=== PATIENT | female | born 1940 | race Caucasian/White ===

== ENCOUNTER 2017-02-09 09:02 | Day surgery (SDC) | payer MEDICARE, BC ==
[2017-02-09] MEDS ORDERED: Sodium Chloride 0.9% 1,000 ML IV SCH (09:45)
[2017-02-09] MEDS ORDERED: Midazolam 1 MG/ML 2 ML SDV ONE (10:36)
[2017-02-09] MEDS ORDERED: fentaNYL 100 MCG/2 ML SDV ONE (10:36)
[2017-02-09] MEDS ORDERED: Propofol 200 MG/20 ML SDV ONE (10:36)
[2017-02-09] MEDS ORDERED: Glycopyrrolate 0.2 MG/ML 2 ML SDV ONE (10:47)
[2017-02-09 12:06] VITALS: BP 146/95
--- NOTE | 2017-02-09 18:48 | OR ---
DATE OF PROCEDURE: 02/09/2017 PROCEDURE: Colonoscopy. PREOPERATIVE DIAGNOSIS: History of colon polyps. POSTOPERATIVE DIAGNOSES: History of colon polyps. COMPLICATIONS: None. BOOK AUTHOR: None. INDICATIONS: Risks, benefits, alternatives, and limitations, including, but not limited to infection, bleeding, and perforation were explained the patient wished to proceed. PROCEDURE IN DETAIL: The patient was placed in left lateral decubitus position. Digital rectal exam was performed without abnormality. The scope was introduced and advanced atraumatically to the ileocecal valve. The scope was brought back to the ascending, transverse, descending colon, and retroflexed. No evidence of old or new blood. No polyps. No masses. No diverticulosis. Only minor abnormalities small hemorrhoidal tag. The patient tolerated the procedure well. Bro Singleton MD /[id number]
== END 2017-02-09 12:20 | disposition home or self-care (01) ==
LOC: JP.SDS 09:02
PROVIDERS: ATTEND Surgery
DX: Z12.11 Encounter for screening for malignant neoplasm of colon (principal); K64.4 Residual hemorrhoidal skin tags; K21.9 Gastro-esophageal reflux disease without esophagitis; E11.9 Type 2 diabetes mellitus without complications; E78.5 Hyperlipidemia, unspecified; Z91.040 Latex allergy status
CPT/HCPCS: G0105; J2250; J2704; J3010; J7040; J3490

== ENCOUNTER 2017-02-18 20:07 | Emergency (ER) | payer MEDICARE, BC ==
[2017-02-18 20:34] VITALS: BP 96/59
--- NOTE | 2017-02-18 20:41 | EDM.PDOC ---
ED HPI GENERAL MEDICAL PROBLEM - General Chief Complaint: Bite:Animal, Insect Stated Complaint: EMBEDDED TICK Time Seen by Provider: 02/18/17 20:44 Source of Information: Reports: Patient History Limitations: Reports: No Limitations - History of Present Illness INITIAL COMMENTS - FREE TEXT/NARRATIVE: pt has a embedded tick in the back of the rt knee. Onset: Today Duration: Hour(s): Location: Reports: Lower Extremity, Right Severity: Moderate Associated Symptoms: Reports: No Other Symptoms - Related Data Allergies Allergy/AdvReac Type Severity Reaction Status Date / Time Latex, Natural Rubber Allergy Rash Verified 02/09/17 09:28 aspirin AdvReac Bleeding Verified 02/09/17 09:28 Home Meds: Home Meds Calcium Carbonate/Vitamin D3 [Caltrate 600 + D] 1 tab.chew PO BID 08/07/13 [ History] Fish Oil/DHA/EPA [Fish Oil 1,200 MG] 2 each PO DAILY 08/07/13 [History] Gluc 2KCl/Chondr/Rachel Hy/Hy Ac [Glucosamine & Chondroitin Cap] 1 each PO BID 03/14 [History] Melatonin/Pyridoxine HCl (B6) [Melatonin 5 mg Tablet] 5 mg PO BEDTIME 08/07/13 [ History] Multivits w-Min/Ferrous Gluc [Centrum Multivit-Mineral] 1 each PO DAILY [History] Omeprazole 40 mg PO DAILY 08/07/13 [History] metFORMIN [metFORMIN XR] 500 mg PO DAILY 08/07/13 [History] Sertraline [Zoloft] 150 mg PO DAILY 12/05/13 [History] atorvaSTATin [Lipitor] 40 mg PO BEDTIME 12/05/13 [History] Aspirin [Adult Low Dose Aspirin EC] 81 mg PO DAILY 12/06/13 [History] Cholecalciferol (Vitamin D3) [Vitamin D] 1 tab PO DAILY 04/14/15 [History] Ferrous Sulfate [Ferrous Sulfate] 1 tab PO BID 04/14/15 [History] Ascorbic Acid [Vitamin C] 250 mg PO BID 02/07/17 [History] Clobetasol [Clobetasol 0.05%] 1 dose TOP ASDIRECTED 02/07/17 [History] Cyanocobalamin (Vitamin B-12) [Vitamin B-12] 2 tab PO DAILY 02/07/17 [History] Gabapentin [Neurontin] 300 mg PO TID 02/07/17 [History] Lutein 20 mg PO DAILY 02/07/17 [History] Pramipexole Di-HCl [Mirapex] 0.75 mg PO BEDTIME 02/07/17 [History] Past Medical History HEENT History: Reports: Cataract, Impaired Vision, Macular Degeneration Cardiovascular History: Reports: Heart Murmur, High Cholesterol Gastrointestinal History: Reports: Colon Polyp, GERD, Other (See Below) Other Gastrointestinal History: Esophageal bleed Genitourinary History: Reports: None 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, Fibroids, Musculoskeletal History: Reports: Fracture, Osteoarthritis Psychiatric History: Reports: Depression Endocrine/Metabolic History: Reports: Diabetes, Type II, Obesity/BMI 30+, Osteoporosis Hematologic History: Reports: Blood Transfusion(s), Iron Deficiency - Infectious Disease History Infectious Disease History: Reports: Chicken Pox, Measles, Pertussis (Whooping Cough) - Past Surgical History Female Surgical History: Reports: D&C, Hysterectomy, Salpingo-Oophorectomy, Tubal Ligation Musculoskeletal Surgical History: Reports: None Social & Family History - Tobacco Use Smoking Status *Q: Never Smoker Years of Tobacco use: 15 Packs/Tins Daily: 0.2 Used Tobacco, but Quit: Yes Month Tobacco Last Used: 1984 Second Hand Smoke Exposure: No - Caffeine Use Caffeine Use: Reports: Coffee, Tea - Alcohol Use Days Per Week of Alcohol Use: 0 Number of Drinks Per Day: 1 Total Drinks Per Week: 0 - Recreational Drug Use Recreational Drug Use: No ED ROS GENERAL - Review of Systems Review Of Systems: See Below Constitutional: Reports: No Symptoms HEENT: Reports: No Symptoms Respiratory: Reports: No Symptoms Cardiovascular: Reports: No Symptoms Endocrine: Reports: No Symptoms GI/Abdominal: Reports: No Symptoms : Reports: No Symptoms ED EXAM, ANIMAL BITE - Physical Exam Exam: See Below Text/Narrative:: pt arrived with a deer tick which was very embedded behind her rt knee. Exam Limited By: No Limitations General Appearance: Alert, No Apparent Distress Extremities: Other (Pt had an embedded deer tick behind the rt knee. This was removed with a sliver forceps without difficulty. ) Course - Vital Signs Last Recorded V/S: Last Vital Signs Temp 36.7 C 02/18/17 20:32 Pulse 82 02/18/17 20:32 Resp 14 02/18/17 20:32 BP 96/59 L 02/18/17 20:32 Pulse Ox 96 02/18/17 20:32 Departure - Departure Time of Disposition: 20:40 Disposition: Home, Self-Care 01 Condition: fair Clinical Impression: Dermacentor andersoni tick bite - Discharge Information Referrals: Shonna Coleman MD [Primary Care Provider] - Forms: ED Department Discharge Care Plan Goals: moist warm packs, doxycyline 100mg bid for 5 days.
== END 2017-02-18 20:53 | disposition home or self-care (01) ==
LOC: JP.ED 20:07
DX: S80.261A Insect bite (nonvenomous), right knee, initial encounter (principal); E78.00 Pure hypercholesterolemia, unspecified; K21.9 Gastro-esophageal reflux disease without esophagitis; M19.90 Unspecified osteoarthritis, unspecified site; F32.9 Major depressive disorder, single episode, unspecified; E11.9 Type 2 diabetes mellitus without complications; H54.7 Unspecified visual loss; D64.9 Anemia, unspecified; E66.9 Obesity, unspecified; Z68.37 Body mass index [BMI] 37.0-37.9, adult; Z90.710 Acquired absence of both cervix and uterus; Z91.040 Latex allergy status; Z88.8 Allergy status to other drugs, medicaments and biological substances; Z79.899 Other long term (current) drug therapy; Z79.82 Long term (current) use of aspirin; Z79.84 Long term (current) use of oral hypoglycemic drugs; Z98.49 Cataract extraction status, unspecified eye; Z98.51 Tubal ligation status; Z98.890 Other specified postprocedural states; W57.XXXA Bitten or stung by nonvenomous insect and other nonvenomous arthropods, initial encounter
CPT/HCPCS: 99282; 99283

== ENCOUNTER 2017-04-03 18:04 | Emergency (ER) | payer MEDICARE, BC ==
[2017-04-03] MEDS ORDERED: HYDROmorphone 0.5 MG/0.5 ML Syringe IVPUSH ONE (18:14)
[2017-04-03] MEDS ORDERED: HYDROmorphone 0.5 MG/0.5 ML Syringe ONE (18:15)
--- NOTE | 2017-04-03 18:18 | EDM.PDOC ---
[id number] Complaint: TRIPPED AND FELL Time Seen by Provider: 04/03/17 18:13 Source of Information: Reports: Patient, EMS, Family History Limitations: Reports: No Limitations - History of Present Illness INITIAL COMMENTS - FREE TEXT/NARRATIVE: 76-year-old female tripped over the tongue of the trailer and fell forward striking her left knee and right upper arm and shoulder on the ground. She has significant pain of the right upper arm and left knee. She received pain medicine in route but is still very uncomfortable. Denies any head or neck injury, denies hip pain, shortness of breath or abdominal discomfort. She is not on anticoagulants. She already has advanced arthritic problems. Onset: Sudden (Within the last hour) Location: Reports: Upper Extremity, Right, Lower Extremity, Left Quality: Reports: Sharp, Stabbing Severity: Moderate Worsens with: Reports: Movement Context: Reports: Trauma Associated Symptoms: Denies: Chest Pain, Cough, Headaches, Nausea/Vomiting, Shortness of Breath Right Shoulder Pain Score (Numeric/FACES): 10 Left Knee Pain Score (Numeric/FACES): 10 - Related Data Allergies Allergy/AdvReac Type Severity Reaction Status Date / Time Latex, Natural Rubber Allergy Rash Verified 02/09/17 09:28 aspirin AdvReac Bleeding Verified 02/09/17 09:28 Home Meds: Home Meds Calcium Carbonate/Vitamin D3 [Caltrate 600 + D] 1 tab.chew PO BID 08/07/13 [ History] Fish Oil/DHA/EPA [Fish Oil 1,200 MG] 2 each PO DAILY 08/07/13 [History] Gluc 2KCl/Chondr/Rachel Hy/Hy Ac [Glucosamine & Chondroitin Cap] 1 each PO BID 03/14 [History] Melatonin/Pyridoxine HCl (B6) [Melatonin 5 mg Tablet] 5 mg PO BEDTIME 08/07/13 [ History] Multivits w-Min/Ferrous Gluc [Centrum Multivit-Mineral] 1 each PO DAILY [History] Omeprazole 40 mg PO DAILY 08/07/13 [History] metFORMIN [metFORMIN XR] 500 mg PO DAILY 08/07/13 [History] Sertraline [Zoloft] 150 mg PO DAILY 12/05/13 [History] atorvaSTATin [Lipitor] 40 mg PO BEDTIME 12/05/13 [History] Aspirin [Adult Low Dose Aspirin EC] 81 mg PO DAILY 12/06/13 [History] Cholecalciferol (Vitamin D3) [Vitamin D] 1 tab PO DAILY 04/14/15 [History] Ferrous Sulfate [Ferrous Sulfate] 1 tab PO BID 04/14/15 [History] Ascorbic Acid [Vitamin C] 250 mg PO BID 02/07/17 [History] Clobetasol [Clobetasol 0.05%] 1 dose TOP ASDIRECTED 02/07/17 [History] Cyanocobalamin (Vitamin B-12) [Vitamin B-12] 2 tab PO DAILY 02/07/17 [History] Gabapentin [Neurontin] 300 mg PO TID 02/07/17 [History] Lutein 20 mg PO DAILY 02/07/17 [History] Pramipexole Di-HCl [Mirapex] 0.75 mg PO BEDTIME 02/07/17 [History] Past Medical History HEENT History: Reports: Cataract, Impaired Vision, Macular Degeneration Cardiovascular History: Reports: Heart Murmur, High Cholesterol Gastrointestinal History: Reports: Colon Polyp, GERD, Other (See Below) Other Gastrointestinal History: Esophageal bleed Genitourinary History: Reports: None 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, Fibroids, Musculoskeletal History: Reports: Fracture, Osteoarthritis Psychiatric History: Reports: Depression Endocrine/Metabolic History: Reports: Diabetes, Type II, Obesity/BMI 30+, Osteoporosis Hematologic History: Reports: Blood Transfusion(s), Iron Deficiency - Infectious Disease History Infectious Disease History: Reports: Chicken Pox, Measles, Pertussis (Whooping Cough) - Past Surgical History Female Surgical History: Reports: D&C, Hysterectomy, Salpingo-Oophorectomy, Tubal Ligation Musculoskeletal Surgical History: Reports: None Social & Family History - Tobacco Use Smoking Status *Q: Never Smoker Years of Tobacco use: 15 Packs/Tins Daily: 0.2 Used Tobacco, but Quit: Yes Month Tobacco Last Used: 1984 Second Hand Smoke Exposure: No - Caffeine Use Caffeine Use: Reports: Coffee - Alcohol Use Days Per Week of Alcohol Use: 0 Number of Drinks Per Day: 1 Total Drinks Per Week: 0 - Recreational Drug Use Recreational Drug Use: No Review of Systems - Review of Systems Review Of Systems: See Below Constitutional: Denies: Fever Respiratory: Denies: Shortness of Breath Cardiovascular: Denies: Chest Pain GI/Abdominal: Denies: Abdominal Pain Musculoskeletal: Reports: Shoulder Pain, Arm Pain, Leg Pain (Left side) Neurological: Reports: No Symptoms ED EXAM, GENERAL - Physical Exam Exam: See Below Exam Limited By: No Limitations General Appearance: Alert, Moderate Distress (Very uncomfortable) Eye Exam: Bilateral Eye: EOMI Neck: Non-Tender Respiratory/Chest: No Respiratory Distress, Lungs Clear Extremities: Other (There is swelling around the proximal right humerus with intense pain with any range of motion. She is also holding the left knee in 30 flexion and any extension or flexion causes significant discomfort. Even light palpation causes intense pain so no further exam was done. Distal CMS of the leg and arm are intact.) Course - Vital Signs Last Recorded V/S: Last Vital Signs Temp 98.0 F 04/03/17 20:05 Pulse 60 04/03/17 20:05 Resp 16 04/03/17 20:05 BP 140/72 04/03/17 20:05 Pulse Ox 97 04/03/17 20:05 - Orders/Labs/Meds Orders: Active Orders 24 hr Category Date Time Status Humerus Rt [CR] Stat Exams 04/03/17 18:14 Taken Knee 1V or 2V Lt [CR] Stat Exams 04/03/17 18:14 Taken Meds: Medications Discontinued Medications Generic Name Dose Route Start Last Admin Trade Name Ji PRN Reason Stop Dose Admin Hydromorphone HCl 0.5 mg 04/03/17 18:14 04/03/17 18:18 Dilaudid IVPUSH 04/03/17 18:15 0.5 mg ONETIME ONE Administration Hydromorphone HCl Confirm 04/03/17 18:15 04/03/17 18:18 Dilaudid Administered 04/03/17 18:16 Not Given Dose 0.5 mg .ROUTE .STK-MED ONE - Re-Assessments/Exams Free Text/Narrative Re-Assessment/Exam: 04/03/17 18:19 An x-ray of the right humerus and left knee were obtained. She was given an additional 0.5 mg of Dilaudid IV. 04/03/17 19:56 X-rays confirmed a comminuted proximal humerus and distal left femur fracture. She was accepted for care at [facility] for orthopedic evaluation and definitive care. Departure - Departure Time of Disposition: :17 Disposition: DC/Tfer to Other 70 Condition: Fair Clinical Impression: Humerus surgical neck fracture Qualifiers: Encounter type: initial encounter Fracture type: closed Fracture morphology: 4- part Laterality: right Qualified Code(s): S42.241A - 4-part fracture of surgical neck of right humerus, initial encounter for closed fracture Femur fracture, left Qualifiers: Encounter type: initial encounter Femur location: supracondylar with intracondylar extension Fracture type: closed - Discharge Information Referrals: PCP,None [Primary Care Provider] - Forms: ED Department Discharge Care Plan Goals: Patient was accepted at [facility] for orthopedic evaluation and care. She' ll be transferred via EMS. - My Orders Last 24 Hours: My Active Orders 04/03/17 18:14 Humerus Rt [CR] Stat Knee 1V or 2V Lt [CR] Stat - Assessment/Plan Last 24 Hours: My Active Orders 04/03/17 18:14 Humerus Rt [CR] Stat Knee 1V or 2V Lt [CR] Stat
[2017-04-03 20:18] VITALS: BP 140/72
--- NOTE | 2017-04-05 09:09 | CR ---
Fracture of the right shoulder surgical neck and right humeral head. Multiple fracture fragments of both the humeral head laterally.
--- NOTE | 2017-04-05 09:11 | CR ---
There are 2 lateral views of the left knee. Comminuted distal femoral fracture with impaction. There is displacement of the condyles and the lateral view. No AP view. Proximal tibia is grossly intact.
== END 2017-04-03 20:18 | disposition other institution (70) ==
LOC: JP.ED 18:04
DX: S42.241A 4-part fracture of surgical neck of right humerus, initial encounter for closed fracture (principal); S72.462A Displaced supracondylar fracture with intracondylar extension of lower end of left femur, initial encounter for closed fracture; H54.7 Unspecified visual loss; E78.00 Pure hypercholesterolemia, unspecified; M19.90 Unspecified osteoarthritis, unspecified site; F32.9 Major depressive disorder, single episode, unspecified; E11.9 Type 2 diabetes mellitus without complications; E66.9 Obesity, unspecified; Z90.710 Acquired absence of both cervix and uterus; Z91.040 Latex allergy status; Z79.82 Long term (current) use of aspirin; Z79.899 Other long term (current) drug therapy; Z79.84 Long term (current) use of oral hypoglycemic drugs; W01.0XXA Fall on same level from slipping, tripping and stumbling without subsequent striking against object, initial encounter
CPT/HCPCS: 73060; 73560; 96374; 99284; J1170

== ENCOUNTER 2018-05-10 06:21 | Day surgery (SDC) | payer MEDICARE, BC ==
[2018-05-10] MEDS ORDERED: Sodium Chloride 0.9% 1,000 ML IV SCH (07:00)
[2018-05-10] MEDS ORDERED: fentaNYL 100 MCG/2 ML SDV ONE (07:35)
[2018-05-10] MEDS ORDERED: Propofol 200 MG/20 ML SDV ONE (07:35)
[2018-05-10] MEDS ORDERED: Naloxone 0.4 MG/ML SDV ONE (08:10)
[2018-05-10 09:23] VITALS: BP 100/43
--- NOTE | 2018-05-10 13:34 | OR ---
DATE OF PROCEDURE: 05/10/2018 PROCEDURE PERFORMED: EGD. FINDINGS: 1. Mild inflammation at the GE junction (biopsied using cold biopsy forceps). 2. No evidence of gastric ulceration. PREOPERATIVE DIAGNOSIS: History of gastric ulcer. POSTOPERATIVE DIAGNOSIS: History of gastric ulcer. RISKS: Risks, benefits, alternatives, and limitations including, but not limited to infection, bleeding, and perforation were explained to the patient who wished to proceed. PROCEDURE IN DETAIL: The patient was placed in left lateral decubitus position. EGD scope was introduced and advanced atraumatically to the second part of the duodenum. The scope was brought back through and the patient had no evidence of gastric ulceration or gastritis. She does have a moderate-sized hiatal hernia. Inflammation in the GE junction showed reflux disease are suggested. This was biopsied multiple times using cold biopsy forceps. No other abnormalities were noted in the esophagus. The patient tolerated the procedure well. Bro Singleton MD /[id number]
== END 2018-05-10 09:40 | disposition home or self-care (01) ==
LOC: JP.SDS 06:21
PROVIDERS: ATTEND Surgery
DX: K21.0 Gastro-esophageal reflux disease with esophagitis (principal); K44.9 Diaphragmatic hernia without obstruction or gangrene; E11.9 Type 2 diabetes mellitus without complications; F17.200 Nicotine dependence, unspecified, uncomplicated; Z87.19 Personal history of other diseases of the digestive system; Z91.040 Latex allergy status
CPT/HCPCS: 43239; J2310; J2704; J3010; J7030; 88305

== ENCOUNTER 2021-03-29 05:54 | Day surgery (SDC) | payer MEDICARE, BC ==
[2021-03-29] MEDS ORDERED: Dextrose 5%-Lactated Ringers 1,000 ML IV SCH (07:00)
[2021-03-29] MEDS ORDERED: Propofol 200 MG/20 ML SDV ONE (07:07)
[2021-03-29] MEDS ORDERED: fentaNYL 100 MCG/2 ML SDV ONE (07:07)
[2021-03-29] MEDS ORDERED: Glycopyrrolate 0.2 MG/ML 2 ML SDV ONE (07:38)
[2021-03-29 09:22] VITALS: BP 132/61; PULSE 51
--- NOTE | 2021-04-10 14:24 | OR ---
DATE OF PROCEDURE: 03/29/2021 SURGEON: David Zamorano MD PREOPERATIVE DIAGNOSIS: History of gastroesophageal reflux disease with well-controlled symptoms on omeprazole. POSTOPERATIVE DIAGNOSES: 1. History of gastroesophageal reflux disease with well-controlled symptoms on omeprazole. 2. Very large hiatal hernia with moderate inflammation in the esophagogastric junction. PROCEDURE PERFORMED: Esophagogastroduodenoscopy with biopsy of esophagogastric junction for histologic evaluation. ANESTHESIA: IV sedation. INDICATION FOR PROCEDURE: This is an 80-year-old female presenting for followup upper endoscopy. She has a longstanding history of gastroesophageal reflux disease. In general, these symptoms are well controlled. She is on omeprazole 20 mg a day and watches her diet somewhat. Plan is to proceed with upper endoscopy for surveillance of issues such as Rosas esophagus. Potential risks including bleeding and perforation were discussed, and the patient wishes to proceed. DETAILS OF PROCEDURE: The patient was taken to the operating room and placed in a left lateral decubitus position. IV sedation was administered after which the upper GI endoscope was passed orally through the length of the esophagus into the stomach with retroflexion view of the fundus, and thereafter, through the pyloric channel into the junction of the third and fourth portions of the duodenum. Findings included a normal hypopharynx, larynx, upper esophageal sphincter, and esophageal body. The patient had a quite large hiatal hernia with roughly half of the stomach being up above the diaphragm. This was associated with some mild to moderate inflammation of the distal esophagus. There was no upward migration of the columnar mucosa above the visible gastric folds, and no plaquing, stricturing, or other signs of neoplasia. The remainder of the stomach, pyloric channel, and visualized portions of the duodenum were unremarkable. Biopsies were then obtained from the esophagogastric junction to rule out problems such as Rosas esophagus. Minimal bleeding from the biopsy sites was seen, and the procedure was then concluded. If the patient has no Rosas esophagus on the biopsies done today, then any followup endoscopy can be done on a p.r.n. basis; for instance, if worsening symptoms occur. Otherwise, if Rosas esophagus is identified on today's exam, the next upper endoscopy should be in roughly 2 years. David Zamorano MD /[id number]
== END 2021-03-29 09:34 | disposition home or self-care (01) ==
LOC: JP.SDS 05:54
PROVIDERS: ATTEND Surgery
DX: K21.00 Gastro-esophageal reflux disease with esophagitis, without bleeding (principal); K44.9 Diaphragmatic hernia without obstruction or gangrene; G47.33 Obstructive sleep apnea (adult) (pediatric); E11.9 Type 2 diabetes mellitus without complications; E66.9 Obesity, unspecified; Z91.040 Latex allergy status; Z68.41 Body mass index [BMI] 40.0-44.9, adult
CPT/HCPCS: 43239; 88305; 88312; J2704; J3010; J3490; J7121